=== PATIENT | male | born 1995 ===

== ENCOUNTER 2018-02-23 08:45 | Emergency (ER) | payer OTHER ==
[2018-02-23 08:53] VITALS: BMI 31.6
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
--- NOTE | 2018-02-23 11:30 | RAD ---
PROCEDURE: Left Ankle Radiographs. HISTORY: trauma COMPARISON: None FINDINGS: BONES: Normal. No fracture. JOINTS: The ankle mortise is intact including the anatomic relationships of the distal tibia, fibula and talus. SOFT TISSUES: Circumferential soft tissue swelling primarily laterally without distal fibular fracture. OTHER FINDINGS: None. IMPRESSION: Soft tissue swelling without acute articular or osseous abnormality.
--- NOTE | 2018-02-23 11:42 | RAD ---
PROCEDURE: Left Foot Radiographs. HISTORY: Unspecified trauma COMPARISON: February 23, 2018. Left ankle reported separately FINDINGS: BONES: Normal. No fracture. JOINTS: Normal. SOFT TISSUES: Normal. OTHER FINDINGS: None. IMPRESSION: Normal left foot radiographs.
[2018-02-23 12:34] VITALS: BP 132/70; PULSE 76; RESP 16; TEMP 97.9; O2SAT 98
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
== END 2018-02-23 12:34 | disposition home or self-care (01) ==
LOC: H.ER 08:45
DX: S82.302A Unspecified fracture of lower end of left tibia, initial encounter for closed fracture (principal); W19.XXXA Unspecified fall, initial encounter; Y92.89 Other specified places as the place of occurrence of the external cause

== ENCOUNTER 2018-03-11 11:11 | Day surgery (SDC) | payer OTHER, SELFPAY ==
[2018-03-11 11:46] VITALS: RESP 18
--- NOTE | 2018-03-11 11:48 | CP.SDSHP ---
Same Day Surgery H & P - History Proposed Procedure: L - ATFL, deltoid ligament & Syndesmosis repair Pre-Op Diagnosis: Left Ankle Ligament Tear - Allergies Allergies: Allergies No Known Allergies Allergy (Verified 03/11/18 11:27) - Physical Exam Vital Signs: Vital Signs 03/11/18 11:44 Temperature 98.2 F Pulse Rate 82 Respiratory 18 Rate Blood Pressure 130/75 O2 Sat by Pulse 97 Oximetry - Date & Time Date: 03/11/18 Time: 11:48 Short Stay Discharge - Short Stay Discharge Admitting Diagnosis/Reason for Visit: S93.432A, S93.421D, S93.439A Disposition: HOME/ ROUTINE Referrals: Shaik Holland MD [Primary Care Provider] - Additional Instructions (Diet, Activity): Patient in good/stable condition for discharge home. Pt to resume medications per medical reconciliation. Resume regular diet. Please keep dressing clean, dry, & intact to surgical site, use plastic bag over bandage for showering, wear post op shoe at all times when ambulating, call clinic if you see signs of infection (redness, swelling, malodor), please make an appointment to see Dr. Montilla in office/clinic within 1 week for post-op check. Progress Note/Discharge Note with Instructions: Pt was seen and examined in [facility] Pt NPO status was confirmed All Pre-op testing and clearance was in the chart Pt has exhausted all conservative treatment at this time and is opting for surgical intervention Pt was explained procedure and post-operative course All pt's questions were answered to satisfaction No guarantees were made Pt understands all risks, benefits and complications of procedure Pt will follow-up with Dr. Montilla
--- NOTE | 2018-03-11 11:52 | CP.PCM.PN ---
Subjective - Date & Time of Evaluation Date of Evaluation: 03/11/18 Time of Evaluation: 11:49 - Subjective Subjective: [facility] Note for Podiatry, Dr. Montilla 22 y/o male was seen and evaluated in [facility] prior to Left Ankle procedure. Patient reports he has been NPO since 10 pm last night. Patient denies any previous adverse reaction to anesthesia. Patient denies any new pedal complaints at this time. Patient denies F/V/N/SOB/C/CP. PMHx: denies PSHx: denies Allergies: none Social Hx: denies smoking, occasional ETOH use, denies illicit drug use Objective - Vital Signs/Intake and Output Vital Signs (last 24 hours): Temp Pulse Resp BP Pulse Ox 98.2 F 82 18 130/75 97 03/11/18 11:44 03/11/18 11:44 03/11/18 11:44 03/11/18 11:44 03/11/18 11:44 - Constitutional Appears: Well, Non-toxic, No Acute Distress - Extremities Exam Additional comments: Patient Cast is C/D/I LLE Focused exam- ROM at MPTJ is intact, CFT less than 3 seconds X 5 - Neurological Exam Neurological Exam: Alert, Awake, Oriented x3 - Psychiatric Exam Psychiatric exam: Normal Affect, Normal Mood Assessment and Plan - Assessment and Plan (Free Text) Assessment: 22 y/o male with no significant PMHx seen and evaluated in [facility] prior to Left ankle procedure Plan: Pt was seen and examined in [facility] Pt NPO status was confirmed All Pre-op testing and clearance was in the chart Pt has exhausted all conservative treatment at this time and is opting for surgical intervention Pt was explained procedure and post-operative course All pt's questions were answered to satisfaction No guarantees were made Pt understands all risks, benefits and complications of procedure Pt will follow-up with Dr. Montilla
[2018-03-11] MEDS ORDERED: ceFAZolin 2 GM in Sodium Chloride 0.9% 100 ML IVPB ONE (11:58)
[2018-03-11] MEDS ORDERED: Bupivacaine 0.5% Inj(30mL) IJ ONE ×3 (11:58→14:54)
[2018-03-11] MEDS ORDERED: Lidocaine 1% Inj (20ml) IJ ONE (11:58)
[2018-03-11] MEDS ORDERED: Sodium Chloride 0.9% 1,000 ML IV SCH (12:00)
[2018-03-11] MEDS ORDERED: Lidocaine 2% Inj (20ml) ONE (12:36)
[2018-03-11] MEDS ORDERED: ePHEDrine 50 mg/ml Inj ONE (12:39)
[2018-03-11] MEDS ORDERED: Propofol 10 mg/ml Inj (20 ML) ONE (12:39)
[2018-03-11] MEDS ORDERED: Midazolam 2 MG/2 ML VIAL ONE (12:40)
[2018-03-11] MEDS ORDERED: Succinylcholine 200 mg/10 ml Inj IV ONE (12:40)
[2018-03-11] MEDS ORDERED: Ropivacaine 0.5% 30ML IV ONE (13:02)
[2018-03-11] MEDS ORDERED: Lactated Ringer's 1,000 ML IV ONE ×2 (13:28→15:00)
[2018-03-11] MEDS ORDERED: Dexamethasone 4 mg/1 ml ONE (14:51)
--- NOTE | 2018-03-11 15:51 | PCM.SURG1 ---
Surgeon's Initial Post Op Note - Surgeon's Notes Surgeon: Dr. Montilla Sofa Cover Inspector: Dr. Alex Gutierrez PGY-2; Dr. Teresa Mederos PGY-2 Type of Anesthesia: General LMA, Block Regional, Local Anesthesia Administered By: Dr. Mathew Pre-Operative Diagnosis: 1) tear of ATFL left foot; 2) repair of syndesmotic ligament left foot; 3) repair of deltoid ligament left foot Operative Findings: see operative report Post-Operative Diagnosis: same Operation Performed: 1) repair of ATFL left foot; 2) repair of syndesmotic ligament left foot, 3) repair of deltoid ligament left foot Specimen/Specimens Removed: none Estimated Blood Loss: EBL {In ML}: 1 Blood Products Given: N/A Drains Used: No Drains Post-Op Condition: Good Date of Surgery/Procedure: 03/11/18 Time of Surgery/Procedure: 13:30
[2018-03-11] MEDS ORDERED: Oxycodone/Acetaminophen 5/325 mg Tab PO PRN ×2 (15:53)
--- NOTE | 2018-03-11 16:29 | PCM.ANESB2 ---
Popliteal Nerve Block - Popliteal Nerve Block Date of Procedure: 03/11/18 Anesthesiologist: Pre-Procedure Diagnosis: Left tibiofibular ligament tear Post-Procedure Diagnosis: same Procedure Performed: Popliteal Nerve Block Left - Procedure Popliteal Nerve Block: This procedure was explained to the patient that it is for post-operative pain management. Consent was obtained after a thorough discussion with the patient regarding the benefits and possible complications of local anesthetic block of the sciatic nerve at the popliteal level. The patient supine on the operating room and standard monitors are applied. Time-out was held with the circulating nurse to confirm the correct surgery and the appropriate block. After applying oxygen by face mask, patient's operative leg was gently raised and supported and the groove in between the biceps femoris and vastus lateralis muscles was carefully palpated. The skin approximately 8cm above the popliteal crease was then marked. The ultrasound transducer was then applied to the posterior thigh approximately 8cm above the popliteal crease in the transverse plane and the sciatic nerve before its division was visualized lateral to the popliteal artery and in between the bicep femoris and semimembranosus/semitendinosus muscles. After identification, the lateral portion of the thigh was prepped with chloraprep solution. At this point, a # 21 gauge Stimuplex insulated 4 inch needle was inserted into pre-marked area and advanced in a perpendicular direction. The needle was inserted above the ultrasound transducer in-plane towards the sciatic nerve in a [id number] direction. Needle advancement was performed carefully under direct ultrasound visualization. Nerve stimulator was used and dorsiflexion of the left foot was elicited at a current of 0.5 MA. After repeated negative aspiration, 2cc of 0.5% Ropivacaine was injected and this was flowed with 18cc of 0.5% Ropivacaine. Under ultrasound guidance the local anesthetics were observed surrounding sciatic nerve . The needle was removed intact and sterile dressing was applied. The patient tolerated the popliteal nerve block well with stable vital signs.
[2018-03-11] MEDS ORDERED: Lactated Ringer's 1,000 ML IV SCH (16:30)
[2018-03-11] MEDS: Morphine 4 MG/ML VIAL IVP PRN ×3 (16:38→17:30)
[2018-03-11 18:34] VITALS: BP 153/80; PULSE 80; TEMP 98; O2SAT 99
--- NOTE | 2018-03-12 10:29 | RAD ---
PROCEDURE: Left ankle 03/11/2018. Three views of the left ankle performed through a fiberglass cast presented which diminishes fine soft tissue and bone detail. HISTORY: s/p left ankle surgery COMPARISON: Comparison made with prior study 02/23/2018 FINDINGS: BONES: Patient is status post a syndesmotic tight rope repair. . Previously noted fracture line along the posterior malleolus less well seen on this study as compared to prior exam consistent with interval healing. JOINTS: Normal. No osteoarthritis. Ankle mortise maintained. Talar dome intact SOFT TISSUES: Minor soft tissue bilateral soft tissue swelling, lateral aspect of which improved from prior study OTHER FINDINGS: None. IMPRESSION: Patient is status post a syndesmotic tight rope repair. Previously noted fracture line along the posterior malleolus less well seen on this study as compared to prior exam consistent with interval healing.
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
== END 2018-03-11 19:29 | disposition home or self-care (01) ==
LOC: H.OPSURG 11:11
PROVIDERS: ATTEND Podiatrist
DX: S93.432A Sprain of tibiofibular ligament of left ankle, initial encounter (principal); S93.421A Sprain of deltoid ligament of right ankle, initial encounter; S93.439A Sprain of tibiofibular ligament of unspecified ankle, initial encounter; X58.XXXA Exposure to other specified factors, initial encounter
CPT/HCPCS: 27792; 73610; C1713; C1769; J0330; J0690; J1100; J2001; J2250; J2270; J2704; J3010; J7120